=== PATIENT | female | born 1955 | race Two or more races ===

== ENCOUNTER 2021-04-16 09:32 | Emergency (ER) | payer OTHER ==
[~2021-04-16] VITALS: Ht 162.6 cm; Wt 62.5 kg
--- NOTE | 2021-04-16 09:40 | NUR ---
Pt ambulated independently to ED room 15 from triage in NAD
--- NOTE | 2021-04-16 10:08 | NUR ---
Pt reports that she is here today due to her high blood pressure. She states that 2 days ago she had a headache and checked her BP, finding it to be high. She treated it at home with an out of date BP meds yesterday but checked BP today and found it high again.
[2021-04-16 10:21] LABS: BASOPHILS % (AUTO) 1 % (0-1); EOSINOPHILS % (AUTO) 1 % (1-7); LYMPHOCYTES % (AUTO) 22 % (22-44); MEAN CORPUSCULAR HEMOGLOBIN 30.4 pg (27.0-34.8); MEAN CORPUSCULAR HGB CONC 34.5 g/dL (32.4-35.8); MEAN PLATELET VOLUME 6.6 fL (7.4-10.4); MONOCYTES % (AUTO) 6 % (2-9); NEUTROPHILS % (AUTO) 71 % (42-75); PLATELET COUNT 336 x10^3/uL (130-400); RED BLOOD COUNT 5.24 x10^6/uL (3.82-5.3); RED CELL DISTRIBUTION WIDTH 13.5 % (9.6-15.2)
[2021-04-16 10:32] LABS: ANION GAP 6 mmol/L (5-15); CALCIUM 9.1 mg/dL (8.5-10.1); CHLORIDE 107 mmol/L (98-107); CREATININE 0.91 mg/dL (0.55-1.02)
[2021-04-16 10:33] LABS: ALBUMIN 3.7 g/dL (3.4-5.0)
--- NOTE | 2021-04-16 10:36 | NUR ---
Pt ambulated independently to restroom to provide UA Pt states that she has not been vaccinated for COVID because she had COVID PNA in July.
[2021-04-16 10:48] LABS: TROPONIN I < 0.015 ng/mL (0.000-0.045)
--- NOTE | 2021-04-16 10:57 | NUR ---
report to JESE Byrne, pt care transferred at this time.
--- NOTE | 2021-04-16 10:58 | NUR ---
REPORT FROM FAHAD SAWANT
[2021-04-16] MEDS ORDERED: PLEASE ENTER ALLERGIES MC SCH (11:00)
[2021-04-16] MEDS ORDERED: HYDROCHLOROTHIAZIDE 25 MG TABLET PO ONE (11:00)
[2021-04-16 11:01] LABS: MICROSCOPIC NOT IND
--- NOTE | 2021-04-16 11:17 | NUR ---
hctz requested from pharmacy
[2021-04-16 12:36] VITALS: BP 128/77
== END 2021-04-16 12:38 | disposition home or self-care (01) ==
LOC: ED 10:52
DX: I10 Essential (primary) hypertension (principal); R51.9 Headache, unspecified; R10.9 Unspecified abdominal pain
CPT/HCPCS: 36415; 80048; 81003; 82040; 84484; 85025; 93005; 99284